=== PATIENT | male | born 1970 | race Two or more races ===

== ENCOUNTER 2023-05-03 10:05 | Inpatient (IN) | payer OTHER ==
[2023-05-03 10:58] VITALS: BMI 30.8
[2023-05-03] MEDS ORDERED: IBUPROFEN 400 MG TABLET (FP) PO PRN (11:23)
[2023-05-03] MEDS ORDERED: guaiFENesin 600 MG TABLET.ER (FP) PO PRN (11:23)
[2023-05-03] MEDS ORDERED: NICOTINE POLACRILEX 2 MG GUM BUC PRN (11:23)
[2023-05-03] MEDS ORDERED: LOPERAMIDE HCL 2 MG CAPSULE PO PRN (11:23)
[2023-05-03] MEDS ORDERED: ACETAMINOPHEN 325 MG TABLET (FP) PO PRN (11:23)
[2023-05-03] MEDS ORDERED: NALOXONE HCL (KLOXXADO) 8 MG SPRAY NS PRN (11:23)
[2023-05-03] MEDS ORDERED: BENZOCAINE/MENTHOL (CHLORASEPTIC ) LOZENGE MM PRN (11:23)
[2023-05-03] MEDS ORDERED: BISMUTH SUBSALICYLATE 262 MG/15 ML BTL PO PRN (11:23)
[2023-05-03] MEDS ORDERED: NALOXONE HCL 0.4 MG/ML VIAL IM PRN (11:23)
[2023-05-03] MEDS ORDERED: IBUPROFEN 600 MG TABLET (FP) PO PRN (11:23)
[2023-05-03] MEDS ORDERED: BENZONATATE 200 MG CAPSULE PO PRN (11:23)
[2023-05-03] MEDS ORDERED: chlordiazePOXIDE HCL 25 MG CAPSULE ONE (12:39)
[2023-05-03] MEDS: chlordiazePOXIDE HCL 25 MG CAPSULE PO PRN (13:26)
[2023-05-03] MEDS: LISINOPRIL 10 MG TABLET PO ONE (15:51)
[2023-05-03] MEDS: chlordiazePOXIDE HCL 25 MG CAPSULE PO SCH (17:08)
[2023-05-03] MEDS: hydrOXYzine PAMOATE 25 MG CAPSULE (FP) PO PRN (20:16)
[2023-05-03] MEDS: THIAMINE HCL 100 MG TABLET (FP) PO SCH (22:16)
[2023-05-03] MEDS: cloNIDine HCL 0.1 MG TABLET PO SCH (22:16)
[2023-05-03] MEDS: MELATONIN 5 MG TABLETS PO SCH (22:17)
[2023-05-03] MEDS: METHOCARBAMOL 500 MG TABLET PO PRN (22:18)
[2023-05-04] MEDS: methaDONE HCL 40 MG DISPERSABLE TABLET PO SCH (08:48)
[2023-05-04] MEDS: PRENATAL VITAMINS W/ FOLIC ACID TABLET (FP) PO SCH (10:12)
[2023-05-04] MEDS: NICOTINE 21 MG/24 HOURS TOPICAL PATCH TD SCH (10:12)
[2023-05-04] MEDS: LISINOPRIL 10 MG TABLET PO SCH (10:12)
[2023-05-04 11:03] LABS: HEMATOCRIT 42.1 % (35.4-49); HEMOGLOBIN 13.8 GM/dL (11.7-16.9); MCH 28.8 pg (25.7-33.7); MCHC 32.9 g/dl (32.0-35.9); MEAN CELL VOLUME 87.3 fl (80-96); MEAN PLT VOLUME 9.2 fl (7.5-11.1); PLATELET COUNT 207 10^3/uL (134-434); RBC 4.82 M/mm3 (4.00-5.60); RDW 13.9 % (11.9-15.9); WHITE BLOOD COUNT 6.2 K/mm3 (4.0-10.0)
[2023-05-04 11:04] LABS: POTASSIUM 4.2 mmol/L (3.5-5.1)
[2023-05-04 11:12] LABS: ALBUMIN 3.9 g/dl (3.4-5.0); BLOOD UREA NITROGEN 22.7 mg/dL (7-18)
[2023-05-04 11:15] LABS: CREATININE 0.7 mg/dL (0.55-1.3)
[2023-05-04 11:17] LABS: TOT PROT 6.9 g/dl (6.4-8.2)
[2023-05-04 11:18] LABS: BILIRUBIN,TOTAL 0.7 mg/dL (0.2-1)
[2023-05-04] MEDS: FLU VACCINE (FLULAVAL) PF 60 MCG/0.5 ML SYRINGE 2023-2024 IM ONE (11:47)
[2023-05-04] MEDS: PNEUMOC 20-VAL CONJ-DIP CRM/PF 0.5 ML SYRINGE IM ONE (11:48)
[2023-05-04] MEDS: MAGNESIUM HYDROX 2400MG/30ML ORAL SUSPENSION 30 ML CUP PO PRN (17:51)
[2023-05-04] MEDS: GABAPENTIN 300 MG CAPSULE PO SCH (22:10)
[2023-05-05] MEDS: chlordiazePOXIDE HCL 25 MG CAPSULE PO SCH (05:28)
[2023-05-05] MEDS: MAG HYDROX/AL HYDROX/SIMETH 30 ML UNIT-DOSE CUP PO PRN (13:16)
[2023-05-05] MEDS: POLYETHYLENE GLYCOL (HEALTHYLAX) 3350 17 GM PACKET PO PRN (22:09)
[2023-05-06] MEDS: chlordiazePOXIDE HCL 10 MG CAPSULE PO SCH (05:28)
[2023-05-06] MEDS: ONDANSETRON *ODT* 4 MG TABLET SL PRN (10:18)
[2023-05-06] MEDS: chlordiazePOXIDE HCL 10 MG CAPSULE PO PRN (14:17)
[2023-05-07] MEDS: chlordiazePOXIDE HCL 10 MG CAPSULE PO SCH (05:13)
[2023-05-07 09:17] VITALS: BP 125/81; PULSE 103; RESP 18; TEMP 98.3
[2023-05-08] MEDS ORDERED: chlordiazePOXIDE HCL 10 MG CAPSULE PO ONE (05:00)
== END 2023-05-07 09:02 | disposition home or self-care (01) | DRG 773 ==
LOC: YASAS 10:05 → Y6N 12:39
PROVIDERS: ADMIT Allergy & Immunology; ATTEND Surgery
PROC: HZ2ZZZZ Detoxification Services for Substance Abuse Treatment (ICD-10-PCS; principal; 2023-05-03)
DX: F10.230 Alcohol dependence with withdrawal, uncomplicated (principal); F11.20 Opioid dependence, uncomplicated; F17.210 Nicotine dependence, cigarettes, uncomplicated; F19.282 Other psychoactive substance dependence with psychoactive substance-induced sleep disorder; F41.9 Anxiety disorder, unspecified; I10 Essential (primary) hypertension; J45.909 Unspecified asthma, uncomplicated; M54.50 Low back pain, unspecified; G89.29 Other chronic pain; Z56.0 Unemployment, unspecified; Z59.00 Homelessness unspecified
CPT/HCPCS: 36415; 80053; 80307; 85027; 86780; 87635; 87811; 90677; 90686; 93005; 93010; G0008; Q0162

== ENCOUNTER 2023-06-07 09:58 | Inpatient (IN) | payer OTHER ==
[2023-06-07 10:39] VITALS: BMI 31.6
[2023-06-07] MEDS ORDERED: guaiFENesin 600 MG TABLET.ER (FP) PO PRN (12:24)
[2023-06-07] MEDS ORDERED: DICYCLOMINE HCL 10 MG CAPSULE PO PRN (12:24)
[2023-06-07] MEDS ORDERED: LOPERAMIDE HCL 2 MG CAPSULE PO PRN (12:24)
[2023-06-07] MEDS ORDERED: BENZOCAINE/MENTHOL (CHLORASEPTIC ) LOZENGE MM PRN (12:24)
[2023-06-07] MEDS ORDERED: POLYETHYLENE GLYCOL (HEALTHYLAX) 3350 17 GM PACKET PO PRN (12:24)
[2023-06-07] MEDS ORDERED: BENZONATATE 200 MG CAPSULE PO PRN (12:24)
[2023-06-07] MEDS ORDERED: IBUPROFEN 400 MG TABLET (FP) PO PRN (12:24)
[2023-06-07] MEDS ORDERED: NALOXONE HCL 0.4 MG/ML VIAL IM PRN (12:24)
[2023-06-07] MEDS ORDERED: NALOXONE HCL (KLOXXADO) 8 MG SPRAY NS PRN (12:24)
[2023-06-07] MEDS ORDERED: chlordiazePOXIDE HCL 25 MG CAPSULE PO PRN (12:24)
[2023-06-07] MEDS ORDERED: chlordiazePOXIDE HCL 25 MG CAPSULE ONE (12:50)
[2023-06-07] MEDS ORDERED: NICOTINE 21 MG/24 HOURS TOPICAL PATCH ONE (12:50)
[2023-06-07] MEDS ORDERED: cloNIDine HCL 0.1 MG TABLET ONE (12:51)
[2023-06-07] MEDS ORDERED: ONDANSETRON *ODT* 4 MG TABLET ONE (12:51)
[2023-06-07] MEDS: chlordiazePOXIDE HCL 25 MG CAPSULE PO ONE (12:55)
[2023-06-07] MEDS: NICOTINE 21 MG/24 HOURS TOPICAL PATCH TD SCH (12:56)
[2023-06-07] MEDS: ONDANSETRON *ODT* 4 MG TABLET SL PRN (12:57)
[2023-06-07] MEDS ORDERED: ACETAMINOPHEN 325 MG TABLET (FP) ONE (13:03)
[2023-06-07] MEDS: PRENATAL VITAMINS W/ FOLIC ACID TABLET (FP) PO SCH (13:07)
[2023-06-07] MEDS: ACETAMINOPHEN 325 MG TABLET (FP) PO PRN (13:08)
[2023-06-07] MEDS: cloNIDine HCL 0.1 MG TABLET PO ONE (13:13)
[2023-06-07] MEDS: METHOCARBAMOL 500 MG TABLET PO PRN (14:28)
[2023-06-07] MEDS: hydrOXYzine PAMOATE 25 MG CAPSULE (FP) PO PRN (14:28)
[2023-06-07] MEDS: chlordiazePOXIDE HCL 25 MG CAPSULE PO SCH (17:39)
[2023-06-07] MEDS: MELATONIN 5 MG TABLETS PO SCH (22:22)
[2023-06-07] MEDS: GABAPENTIN 300 MG CAPSULE PO SCH (22:23)
[2023-06-07] MEDS: cloNIDine HCL 0.1 MG TABLET PO SCH (22:23)
[2023-06-07] MEDS: THIAMINE HCL 100 MG TABLET (FP) PO SCH (22:23)
[2023-06-08] MEDS ORDERED: methaDONE HCL 40 MG DISPERSABLE TABLET PO SCH (10:00)
[2023-06-08] MEDS: IBUPROFEN 600 MG TABLET (FP) PO PRN (10:11)
[2023-06-08] MEDS: LISINOPRIL 10 MG TABLET PO SCH (10:12)
[2023-06-08 11:36] LABS: HEMATOCRIT 40.4 % (35.4-49); HEMOGLOBIN 13.6 GM/dL (11.7-16.9); MCH 29.6 pg (25.7-33.7); MCHC 33.8 g/dl (32.0-35.9); MEAN CELL VOLUME 87.7 fl (80-96); MEAN PLT VOLUME 8.9 fl (7.5-11.1); PLATELET COUNT 208 10^3/uL (134-434); RBC 4.61 M/mm3 (4.00-5.60); RDW 14.1 % (11.9-15.9); WHITE BLOOD COUNT 6.7 K/mm3 (4.0-10.0)
[2023-06-08 11:38] LABS: POTASSIUM 4.5 mmol/L (3.5-5.1)
[2023-06-08 11:46] LABS: CALCIUM 8.9 mg/dL (8.5-10.1)
[2023-06-08 11:47] LABS: ALBUMIN 4.3 g/dl (3.4-5.0); BLOOD UREA NITROGEN 26.5 mg/dL (7-18)
[2023-06-08 11:50] LABS: CREATININE 0.8 mg/dL (0.55-1.3)
[2023-06-08 11:51] LABS: BILIRUBIN,TOTAL 0.8 mg/dL (0.2-1); TOT PROT 6.9 g/dl (6.4-8.2)
[2023-06-08] MEDS: LACTULOSE 20 GM/30 ML UDC (FOR ORAL USE ONLY) PO SCH (13:05)
[2023-06-08] MEDS: MAG HYDROX/AL HYDROX/SIMETH 30 ML UNIT-DOSE CUP PO PRN (16:18)
[2023-06-08] MEDS: MAGNESIUM HYDROX 2400MG/30ML ORAL SUSPENSION 30 ML CUP PO PRN (21:35)
[2023-06-09] MEDS: BISMUTH SUBSALICYLATE 524 MG/30 ML PO PRN (01:54)
[2023-06-09] MEDS: chlordiazePOXIDE HCL 25 MG CAPSULE PO SCH (05:38)
[2023-06-09] MEDS: cloNIDine HCL 0.1 MG TABLET PO PRN (11:49)
[2023-06-10] MEDS ORDERED: chlordiazePOXIDE HCL 10 MG CAPSULE PO PRN
[2023-06-10] MEDS: chlordiazePOXIDE HCL 10 MG CAPSULE PO SCH (05:40)
[2023-06-10 06:21] VITALS: TEMP 97.7
[2023-06-10 09:28] VITALS: BP 145/86; PULSE 78; RESP 18
[2023-06-11] MEDS ORDERED: chlordiazePOXIDE HCL 10 MG CAPSULE PO SCH (05:00)
[2023-06-12] MEDS ORDERED: chlordiazePOXIDE HCL 10 MG CAPSULE PO ONE (05:00)
== END 2023-06-10 09:37 | disposition home or self-care (01) | DRG 773 ==
LOC: YASAS 09:58 → Y3N 12:33
PROVIDERS: ADMIT Allergy & Immunology; ATTEND Surgery
PROC: HZ2ZZZZ Detoxification Services for Substance Abuse Treatment (ICD-10-PCS; principal; 2023-06-06)
DX: F10.230 Alcohol dependence with withdrawal, uncomplicated (principal); F11.20 Opioid dependence, uncomplicated; F17.210 Nicotine dependence, cigarettes, uncomplicated; F19.282 Other psychoactive substance dependence with psychoactive substance-induced sleep disorder; F41.9 Anxiety disorder, unspecified; E72.20 Disorder of urea cycle metabolism, unspecified; I10 Essential (primary) hypertension; J45.909 Unspecified asthma, uncomplicated; M54.50 Low back pain, unspecified; G89.29 Other chronic pain; Z56.0 Unemployment, unspecified; Z59.01 Sheltered homelessness
CPT/HCPCS: 36415; 80053; 80307; 82140; 82962; 85027; 86780; 87635; Q0162

== ENCOUNTER 2023-06-29 11:42 | Inpatient (IN) | payer OTHER ==
[2023-06-29 12:30] VITALS: BMI 32.1
[2023-06-29] MEDS ORDERED: NICOTINE POLACRILEX 2 MG GUM BUC PRN (15:28)
[2023-06-29] MEDS ORDERED: NALOXONE HCL (KLOXXADO) 8 MG SPRAY NS PRN (15:28)
[2023-06-29] MEDS ORDERED: guaiFENesin 600 MG TABLET.ER (FP) PO PRN (15:28)
[2023-06-29] MEDS ORDERED: POLYETHYLENE GLYCOL (HEALTHYLAX) 3350 17 GM PACKET PO PRN (15:28)
[2023-06-29] MEDS ORDERED: IBUPROFEN 400 MG TABLET (FP) PO PRN (15:28)
[2023-06-29] MEDS ORDERED: NALOXONE HCL 0.4 MG/ML VIAL IM PRN (15:28)
[2023-06-29] MEDS ORDERED: ACETAMINOPHEN 325 MG TABLET (FP) PO PRN (15:28)
[2023-06-29] MEDS ORDERED: LOPERAMIDE HCL 2 MG CAPSULE PO PRN (15:28)
[2023-06-29] MEDS ORDERED: BENZONATATE 200 MG CAPSULE PO PRN (15:28)
[2023-06-29] MEDS ORDERED: ONDANSETRON *ODT* 4 MG TABLET SL PRN (15:28)
[2023-06-29] MEDS ORDERED: BENZOCAINE/MENTHOL (CHLORASEPTIC ) LOZENGE MM PRN (15:28)
[2023-06-29] MEDS ORDERED: diazePAM 5 MG TABLET ONE (16:41)
[2023-06-29] MEDS: diazePAM 5 MG TABLET PO SCH (16:43)
[2023-06-29] MEDS: IBUPROFEN 600 MG TABLET (FP) PO PRN (17:15)
[2023-06-29] MEDS: MELATONIN 5 MG TABLETS PO SCH (22:00)
[2023-06-29] MEDS: THIAMINE HCL 100 MG TABLET (FP) PO SCH (22:04)
[2023-06-29] MEDS: METHOCARBAMOL 500 MG TABLET PO PRN (22:04)
[2023-06-30] MEDS: methaDONE HCL 40 MG DISPERSABLE TABLET PO SCH (08:57)
[2023-06-30] MEDS: NICOTINE 14 MG/24 HOURS TOPICAL PATCH TD SCH (10:01)
[2023-06-30] MEDS: PRENATAL VITAMINS W/ FOLIC ACID TABLET (FP) PO SCH (10:01)
[2023-06-30] MEDS: GABAPENTIN 300 MG CAPSULE PO SCH (10:44)
[2023-06-30] MEDS: LISINOPRIL 10 MG TABLET PO SCH (10:44)
[2023-06-30 12:08] LABS: HEMATOCRIT 38.4 % (35.4-49); MCH 29.3 pg (25.7-33.7); MCHC 33.9 g/dl (32.0-35.9); MEAN CELL VOLUME 86.4 fl (80-96); MEAN PLT VOLUME 8.6 fl (7.5-11.1); PLATELET COUNT 206 10^3/uL (134-434); RBC 4.44 M/mm3 (4.00-5.60); WHITE BLOOD COUNT 6.1 K/mm3 (4.0-10.0)
[2023-06-30 12:13] LABS: CALCIUM 8.8 mg/dL (8.5-10.1)
[2023-06-30 12:14] LABS: ALBUMIN 3.5 g/dl (3.4-5.0); ANION GAP 4 mmol/L (4-13); BLOOD UREA NITROGEN 25.1 mg/dL (7-18); CHLORIDE 105 mmol/L (98-107); CO2 29 mmol/L (21-32); GLUCOSE,RANDOM 118 mg/dL (74-106); POTASSIUM 4.4 mmol/L (3.5-5.1); SODIUM 138 mmol/L (136-145)
[2023-06-30 12:17] LABS: CREATININE 0.8 mg/dL (0.55-1.3); SGOT/AST 26 U/L (15-37); SGPT/ALT 26 U/L (13-61)
[2023-06-30 12:18] LABS: BILIRUBIN,TOTAL 0.5 mg/dL (0.2-1); TOT PROT 6.4 g/dl (6.4-8.2)
[2023-06-30 12:19] LABS: ALK PHOS 81 U/L (45-117)
[2023-06-30] MEDS: diazePAM 5 MG TABLET PO PRN (12:25)
[2023-06-30] MEDS: cloNIDine HCL 0.1 MG TABLET PO ONE (13:55)
[2023-06-30] MEDS: MAGNESIUM HYDROX 2400MG/30ML ORAL SUSPENSION 30 ML CUP PO PRN (18:15)
[2023-07-01] MEDS: diazePAM 5 MG TABLET PO SCH (05:14)
[2023-07-01] MEDS: MAG HYDROX/AL HYDROX/SIMETH 30 ML UNIT-DOSE CUP PO PRN (06:40)
[2023-07-01] MEDS: LACTULOSE 20 GM/30 ML UDC (FOR ORAL USE ONLY) PO SCH (17:20)
[2023-07-01] MEDS: SUVOREXANT 10 MG TABLET PO PRN (22:06)
[2023-07-02] MEDS: diazePAM 5 MG TABLET PO SCH (06:01)
[2023-07-02] MEDS: BISMUTH SUBSALICYLATE 524 MG/30 ML PO PRN (18:18)
[2023-07-02] MEDS: HYDROCORTISONE 2.5% TOPICAL CREAM 30 GM TUBE TP PRN (22:11)
[2023-07-03] MEDS: diazePAM 5 MG TABLET PO ONE (05:37)
[2023-07-03] MEDS: ALBUTEROL SO4 HFA INHALER IH PRN (13:26)
[2023-07-04] MEDS: diazePAM 5 MG TABLET PO ONE (05:55)
[2023-07-04 09:26] VITALS: BP 135/87; PULSE 85; RESP 20; TEMP 96.9
== END 2023-07-04 10:32 | disposition home or self-care (01) | DRG 773 ==
LOC: YASAS 11:42 → Y6N 16:27
PROVIDERS: ADMIT Allergy & Immunology; ATTEND Surgery
PROC: HZ2ZZZZ Detoxification Services for Substance Abuse Treatment (ICD-10-PCS; principal; 2023-06-29)
DX: F10.230 Alcohol dependence with withdrawal, uncomplicated (principal); F13.230 Sedative, hypnotic or anxiolytic dependence with withdrawal, uncomplicated; F11.20 Opioid dependence, uncomplicated; F17.210 Nicotine dependence, cigarettes, uncomplicated; F19.282 Other psychoactive substance dependence with psychoactive substance-induced sleep disorder; F19.280 Other psychoactive substance dependence with psychoactive substance-induced anxiety disorder; E72.20 Disorder of urea cycle metabolism, unspecified; I10 Essential (primary) hypertension; J45.20 Mild intermittent asthma, uncomplicated; M48.061 Spinal stenosis, lumbar region without neurogenic claudication; M54.50 Low back pain, unspecified; G89.29 Other chronic pain; R73.9 Hyperglycemia, unspecified; R79.89 Other specified abnormal findings of blood chemistry; Z62.810 Personal history of physical and sexual abuse in childhood; Z63.8 Other specified problems related to primary support group
CPT/HCPCS: 36415; 80053; 80305; 80307; 82140; 82962; 83036; 84520; 85027; 86780; 87635; 93005; 93010

== ENCOUNTER 2023-08-06 18:05 | Inpatient (IN) | payer OTHER ==
[2023-08-06 18:29] VITALS: BMI 31.3
[2023-08-06] MEDS ORDERED: DICYCLOMINE HCL 10 MG CAPSULE PO PRN (19:03)
[2023-08-06] MEDS ORDERED: guaiFENesin 600 MG TABLET.ER (FP) PO PRN (19:03)
[2023-08-06] MEDS ORDERED: ONDANSETRON *ODT* 4 MG TABLET SL PRN (19:03)
[2023-08-06] MEDS ORDERED: BISMUTH SUBSALICYLATE 524 MG/30 ML PO PRN (19:03)
[2023-08-06] MEDS ORDERED: NALOXONE HCL 0.4 MG/ML VIAL IM PRN (19:03)
[2023-08-06] MEDS ORDERED: BENZOCAINE/MENTHOL (CHLORASEPTIC ) LOZENGE MM PRN (19:03)
[2023-08-06] MEDS ORDERED: IBUPROFEN 400 MG TABLET (FP) PO PRN (19:03)
[2023-08-06] MEDS ORDERED: NALOXONE HCL (KLOXXADO) 8 MG SPRAY NS PRN (19:03)
[2023-08-06] MEDS ORDERED: POLYETHYLENE GLYCOL (HEALTHYLAX) 3350 17 GM PACKET PO PRN (19:03)
[2023-08-06] MEDS ORDERED: LOPERAMIDE HCL 2 MG CAPSULE PO PRN (19:03)
[2023-08-06] MEDS ORDERED: BENZONATATE 200 MG CAPSULE PO PRN (19:03)
[2023-08-06] MEDS: THIAMINE HCL 100 MG TABLET (FP) PO SCH (22:07)
[2023-08-06] MEDS: MELATONIN 5 MG TABLETS PO SCH (22:07)
[2023-08-06] MEDS: diazePAM 5 MG TABLET PO SCH (22:10)
[2023-08-07] MEDS: ACETAMINOPHEN 325 MG TABLET (FP) PO PRN (05:20)
[2023-08-07] MEDS: METHOCARBAMOL 500 MG TABLET PO PRN (07:39)
[2023-08-07] MEDS: PRENATAL VITAMINS W/ FOLIC ACID TABLET (FP) PO SCH (10:32)
[2023-08-07] MEDS: methaDONE HCL 40 MG DISPERSABLE TABLET PO SCH (10:51)
[2023-08-07] MEDS: LISINOPRIL 10 MG TABLET PO SCH (13:16)
[2023-08-07 14:09] LABS: HEMATOCRIT 41.6 % (35.4-49); HEMOGLOBIN 13.7 GM/dL (11.7-16.9); MCH 28.7 pg (25.7-33.7); MCHC 32.8 g/dl (32.0-35.9); MEAN CELL VOLUME 87.5 fl (80-96); MEAN PLT VOLUME 8.4 fl (7.5-11.1); PLATELET COUNT 226 10^3/uL (134-434); RBC 4.76 M/mm3 (4.00-5.60); RDW 13.8 % (11.9-15.9); WHITE BLOOD COUNT 7.2 K/mm3 (4.0-10.0)
[2023-08-07 14:25] LABS: CHLORIDE 104 mmol/L (98-107); POTASSIUM 4.4 mmol/L (3.5-5.1); SODIUM 136 mmol/L (136-145)
[2023-08-07 14:27] LABS: ALBUMIN 3.6 g/dl (3.4-5.0); ANION GAP 2 mmol/L (4-13); BLOOD UREA NITROGEN 32.4 mg/dL (7-18); CALCIUM 8.9 mg/dL (8.5-10.1); CO2 30 mmol/L (21-32)
[2023-08-07 14:30] LABS: CREATININE 0.8 mg/dL (0.55-1.3); SGOT/AST 18 U/L (15-37); SGPT/ALT 21 U/L (13-61)
[2023-08-07 14:32] LABS: BILIRUBIN,TOTAL 1.2 mg/dL (0.2-1); TOT PROT 6.3 g/dl (6.4-8.2)
[2023-08-07 14:33] LABS: ALK PHOS 78 U/L (45-117)
[2023-08-07 14:41] LABS: GLUCOSE,RANDOM 93 mg/dL (74-106)
[2023-08-08] MEDS: diazePAM 5 MG TABLET PO SCH (05:28)
[2023-08-08] MEDS: diazePAM 5 MG TABLET PO PRN (10:22)
[2023-08-08] MEDS: NICOTINE 14 MG/24 HOURS TOPICAL PATCH TD SCH (12:36)
[2023-08-08] MEDS: IBUPROFEN 600 MG TABLET (FP) PO PRN (17:19)
[2023-08-08] MEDS: hydrOXYzine PAMOATE 25 MG CAPSULE (FP) PO PRN (22:04)
[2023-08-09] MEDS: diazePAM 5 MG TABLET PO SCH (05:44)
[2023-08-09] MEDS: PANTOPRAZOLE 40 MG TABLET PO SCH (11:30)
[2023-08-09] MEDS: GABAPENTIN 300 MG CAPSULE PO SCH (11:30)
[2023-08-09] MEDS: MAGNESIUM HYDROX 2400MG/30ML ORAL SUSPENSION 30 ML CUP PO PRN (22:30)
[2023-08-10] MEDS: MAG HYDROX/AL HYDROX/SIMETH 30 ML UNIT-DOSE CUP PO PRN (01:52)
[2023-08-10] MEDS: diazePAM 5 MG TABLET PO ONE (05:40)
[2023-08-10 05:56] VITALS: BP 126/88; PULSE 73; RESP 17; TEMP 98.6
== END 2023-08-10 09:07 | disposition home or self-care (01) | DRG 773 ==
LOC: YASAS 18:05 → Y3N 20:30
PROVIDERS: ADMIT Allergy & Immunology; ATTEND Surgery
PROC: HZ2ZZZZ Detoxification Services for Substance Abuse Treatment (ICD-10-PCS; principal; 2023-08-06)
DX: F10.230 Alcohol dependence with withdrawal, uncomplicated (principal); F11.20 Opioid dependence, uncomplicated; F15.20 Other stimulant dependence, uncomplicated; F12.10 Cannabis abuse, uncomplicated; F17.210 Nicotine dependence, cigarettes, uncomplicated; F41.9 Anxiety disorder, unspecified; G47.00 Insomnia, unspecified; K21.9 Gastro-esophageal reflux disease without esophagitis; M54.50 Low back pain, unspecified; G89.29 Other chronic pain; Z87.828 Personal history of other (healed) physical injury and trauma; Z56.0 Unemployment, unspecified; Z59.01 Sheltered homelessness
CPT/HCPCS: 36415; 80053; 80307; 85027; 86780; 93005; 93010

== ENCOUNTER 2023-08-27 10:40 | Inpatient (IN) | payer OTHER ==
[2023-08-27 11:03] VITALS: BMI 32.1
[2023-08-27] MEDS ORDERED: DICYCLOMINE HCL 10 MG CAPSULE PO PRN (11:27)
[2023-08-27] MEDS ORDERED: MAGNESIUM HYDROX 2400MG/30ML ORAL SUSPENSION 30 ML CUP PO PRN (11:27)
[2023-08-27] MEDS ORDERED: BENZONATATE 200 MG CAPSULE PO PRN (11:27)
[2023-08-27] MEDS ORDERED: hydrOXYzine PAMOATE 25 MG CAPSULE (FP) PO PRN (11:27)
[2023-08-27] MEDS ORDERED: NALOXONE HCL (KLOXXADO) 8 MG SPRAY NS PRN (11:27)
[2023-08-27] MEDS ORDERED: ONDANSETRON *ODT* 4 MG TABLET SL PRN (11:27)
[2023-08-27] MEDS ORDERED: guaiFENesin 600 MG TABLET.ER (FP) PO PRN (11:27)
[2023-08-27] MEDS ORDERED: BENZOCAINE/MENTHOL (CHLORASEPTIC ) LOZENGE MM PRN (11:27)
[2023-08-27] MEDS ORDERED: IBUPROFEN 400 MG TABLET (FP) PO PRN (11:27)
[2023-08-27] MEDS ORDERED: NALOXONE HCL 0.4 MG/ML VIAL IM PRN (11:27)
[2023-08-27] MEDS ORDERED: LOPERAMIDE HCL 2 MG CAPSULE PO PRN (11:27)
[2023-08-27] MEDS ORDERED: NICOTINE 21 MG/24 HOURS TOPICAL PATCH ONE (13:13)
[2023-08-27] MEDS ORDERED: ACETAMINOPHEN 325 MG TABLET (FP) ONE (13:13)
[2023-08-27] MEDS ORDERED: diazePAM 5 MG TABLET ONE (13:13)
[2023-08-27] MEDS ORDERED: PRENATAL VITAMINS W/ FOLIC ACID TABLET (FP) PO ONE (13:14)
[2023-08-27] MEDS: PRENATAL VITAMINS W/ FOLIC ACID TABLET (FP) PO SCH (13:19)
[2023-08-27] MEDS: NICOTINE 21 MG/24 HOURS TOPICAL PATCH TD SCH (13:19)
[2023-08-27] MEDS: ACETAMINOPHEN 325 MG TABLET (FP) PO PRN (13:19)
[2023-08-27] MEDS: diazePAM 5 MG TABLET PO PRN (13:20)
[2023-08-27] MEDS: LISINOPRIL 10 MG TABLET PO SCH (15:25)
[2023-08-27] MEDS: diazePAM 5 MG TABLET PO SCH (17:34)
[2023-08-27] MEDS: IBUPROFEN 600 MG TABLET (FP) PO PRN (17:36)
[2023-08-27] MEDS: THIAMINE 100 MG TABLET PO SCH (22:14)
[2023-08-27] MEDS: cloNIDine HCL 0.1 MG TABLET PO ONE (22:14)
[2023-08-27] MEDS: MELATONIN 5 MG TABLETS PO SCH (22:14)
[2023-08-27] MEDS: BISMUTH SUBSALICYLATE 262 MG/15 ML BTL PO PRN (23:12)
[2023-08-28] MEDS ORDERED: methaDONE HCL 40 MG DISPERSABLE TABLET PO SCH (06:00)
[2023-08-28] MEDS: METHOCARBAMOL 500 MG TABLET PO PRN (10:06)
[2023-08-28 12:33] LABS: POTASSIUM 4.4 mmol/L (3.5-5.1)
[2023-08-28 12:37] LABS: ALBUMIN 3.6 g/dl (3.4-5.0); BLOOD UREA NITROGEN 17.6 mg/dL (7-18)
[2023-08-28 12:39] LABS: HEMATOCRIT 41.5 % (35.4-49); HEMOGLOBIN 14.2 GM/dL (11.7-16.9); MCH 29.5 pg (25.7-33.7); MCHC 34.1 g/dl (32.0-35.9); MEAN CELL VOLUME 86.4 fl (80-96); MEAN PLT VOLUME 8.6 fl (7.5-11.1); PLATELET COUNT 241 10^3/uL (134-434); WHITE BLOOD COUNT 6.5 K/mm3 (4.0-10.0)
[2023-08-28 12:42] LABS: BILIRUBIN,TOTAL 0.6 mg/dL (0.2-1); TOT PROT 6.8 g/dl (6.4-8.2)
[2023-08-28] MEDS ORDERED: ALBUTEROL SO4 HFA INHALER IH PRN (14:55)
[2023-08-28] MEDS: MAG HYDROX/AL HYDROX/SIMETH 30 ML UNIT-DOSE CUP PO PRN (18:36)
[2023-08-28] MEDS: MIRTAZAPINE 15 MG TABLET (FP) PO SCH (22:13)
[2023-08-29] MEDS: cloNIDine HCL 0.1 MG TABLET PO PRN (05:31)
[2023-08-29] MEDS: diazePAM 5 MG TABLET PO SCH (05:34)
[2023-08-29] MEDS: GABAPENTIN 300 MG CAPSULE PO SCH (14:14)
[2023-08-29] MEDS: POLYETHYLENE GLYCOL (HEALTHYLAX) 3350 17 GM PACKET PO PRN (14:15)
[2023-08-30] MEDS: diazePAM 5 MG TABLET PO SCH (06:03)
[2023-08-30 09:01] VITALS: BP 145/90; PULSE 86; RESP 20; TEMP 97.6
[2023-08-31] MEDS ORDERED: diazePAM 5 MG TABLET PO ONE (06:00)
== END 2023-08-30 09:13 | disposition home or self-care (01) | DRG 773 ==
LOC: YASAS 10:40 → Y3N 12:31
PROVIDERS: ADMIT Allergy & Immunology; ATTEND Surgery
PROC: HZ2ZZZZ Detoxification Services for Substance Abuse Treatment (ICD-10-PCS; principal; 2023-08-27)
DX: F10.230 Alcohol dependence with withdrawal, uncomplicated (principal); F11.20 Opioid dependence, uncomplicated; F17.210 Nicotine dependence, cigarettes, uncomplicated; F43.10 Post-traumatic stress disorder, unspecified; I10 Essential (primary) hypertension; J45.909 Unspecified asthma, uncomplicated; M54.50 Low back pain, unspecified; G89.29 Other chronic pain; Z91.410 Personal history of adult physical and sexual abuse
CPT/HCPCS: 36415; 80053; 80305; 80307; 82962; 85027; 86780; 93005; 93010

== ENCOUNTER 2023-10-12 18:24 | Inpatient (IN) | payer OTHER ==
[2023-10-12 19:04] VITALS: BMI 30.8
[2023-10-12] MEDS ORDERED: ALBUTEROL SO4 HFA INHALER IH PRN (19:33)
[2023-10-12] MEDS ORDERED: MAGNESIUM HYDROX 2400MG/30ML ORAL SUSPENSION 30 ML CUP PO PRN (19:34)
[2023-10-12] MEDS ORDERED: LOPERAMIDE HCL 2 MG CAPSULE PO PRN (19:34)
[2023-10-12] MEDS ORDERED: POLYETHYLENE GLYCOL (HEALTHYLAX) 3350 17 GM PACKET PO PRN (19:34)
[2023-10-12] MEDS ORDERED: guaiFENesin 600 MG TABLET.ER (FP) PO PRN (19:34)
[2023-10-12] MEDS ORDERED: NALOXONE (NARCAN) HCL 4 MG/0.1 ML SPRAY NS PRN (19:34)
[2023-10-12] MEDS ORDERED: ONDANSETRON *ODT* 4 MG TABLET SL PRN (19:34)
[2023-10-12] MEDS ORDERED: NALOXONE HCL 0.4 MG/ML VIAL IM PRN (19:34)
[2023-10-12] MEDS ORDERED: DICYCLOMINE HCL 10 MG CAPSULE PO PRN (19:34)
[2023-10-12] MEDS ORDERED: BENZONATATE 200 MG CAPSULE PO PRN (19:34)
[2023-10-12] MEDS ORDERED: NICOTINE POLACRILEX 4 MG GUM BUC PRN (19:34)
[2023-10-12] MEDS: DOCUSATE SODIUM 100 MG CAPSULE (FP) PO SCH (22:54)
[2023-10-12] MEDS: FAMOTIDINE 20 MG TABLET PO SCH (22:55)
[2023-10-12] MEDS: MELATONIN 5 MG TABLETS PO SCH (22:55)
[2023-10-12] MEDS: THIAMINE 100 MG TABLET PO SCH (22:55)
[2023-10-12] MEDS: chlordiazePOXIDE HCL 25 MG CAPSULE PO SCH (22:56)
[2023-10-12] MEDS: hydrOXYzine PAMOATE 25 MG CAPSULE (FP) PO PRN (22:57)
[2023-10-13] MEDS ORDERED: methaDONE HCL 10 MG TABLET PO ONE (09:11)
[2023-10-13] MEDS: GABAPENTIN 300 MG CAPSULE PO SCH (09:37)
[2023-10-13] MEDS: PRENATAL VITAMINS W/ FOLIC ACID TABLET (FP) PO SCH (09:37)
[2023-10-13] MEDS: LISINOPRIL 10 MG TABLET PO SCH (09:37)
[2023-10-13] MEDS: HYDROCHLOROTHIAZIDE 25 MG TABLET (FP) PO ONE (09:37)
[2023-10-13] MEDS: NICOTINE 21 MG/24 HOURS TOPICAL PATCH TD SCH (09:42)
[2023-10-13 12:58] LABS: CHLORIDE 106 mmol/L (98-107); HEMATOCRIT 43.6 % (35.4-49); MCH 28.7 pg (25.7-33.7); MCHC 32.2 g/dl (32.0-35.9); MEAN CELL VOLUME 89.2 fl (80-96); MEAN PLT VOLUME 8.8 fl (7.5-11.1); PLATELET COUNT 185 10^3/uL (134-434); RBC 4.89 M/mm3 (4.00-5.60); RDW 14.4 % (11.9-15.9); SODIUM 142 mmol/L (136-145); WHITE BLOOD COUNT 6.6 K/mm3 (4.0-10.0)
[2023-10-13 13:06] LABS: ALBUMIN 3.9 g/dl (3.4-5.0); ANION GAP 7 mmol/L (4-13); CALCIUM 9.6 mg/dL (8.5-10.1); CO2 29 mmol/L (21-32); GLUCOSE,RANDOM 146 mg/dL (74-106)
[2023-10-13 13:07] LABS: SGOT/AST 29 U/L (15-37); SGPT/ALT 34 U/L (13-61)
[2023-10-13 13:08] LABS: CREATININE 0.9 mg/dL (0.55-1.3); TOT PROT 7.2 g/dl (6.4-8.2)
[2023-10-13 13:11] LABS: ALK PHOS 111 U/L (45-117)
[2023-10-13] MEDS: chlordiazePOXIDE HCL 25 MG CAPSULE PO PRN (13:14)
[2023-10-13] MEDS: BISMUTH SUBSALICYLATE 524 MG/30 ML PO PRN (13:17)
[2023-10-13] MEDS: IBUPROFEN 600 MG TABLET (FP) PO PRN (17:16)
[2023-10-13] MEDS: MIRTAZAPINE 15 MG TABLET (FP) PO SCH (22:19)
[2023-10-14] MEDS: chlordiazePOXIDE HCL 25 MG CAPSULE PO SCH (05:48)
[2023-10-14] MEDS ORDERED: methaDONE HCL 10 MG TABLET PO SCH (06:00)
[2023-10-14] MEDS: ACETAMINOPHEN 325 MG TABLET (FP) PO PRN (16:55)
[2023-10-14] MEDS: IBUPROFEN 400 MG TABLET (FP) PO PRN (18:49)
[2023-10-14] MEDS: MAG HYDROX/AL HYDROX/SIMETH 30 ML UNIT-DOSE CUP PO PRN (23:43)
[2023-10-15] MEDS ORDERED: chlordiazePOXIDE HCL 10 MG CAPSULE PO PRN
[2023-10-15] MEDS: chlordiazePOXIDE HCL 10 MG CAPSULE PO SCH (05:21)
[2023-10-15] MEDS: cloNIDine HCL 0.1 MG TABLET PO ONE (13:48)
[2023-10-16] MEDS: chlordiazePOXIDE HCL 10 MG CAPSULE PO SCH (05:23)
[2023-10-16] MEDS: BENZOCAINE/MENTHOL (CHLORASEPTIC ) LOZENGE MM PRN (05:26)
[2023-10-17] MEDS: chlordiazePOXIDE HCL 10 MG CAPSULE PO ONE (05:50)
[2023-10-17 08:57] VITALS: BP 129/87; PULSE 110; RESP 16; TEMP 98
== END 2023-10-17 10:47 | disposition home or self-care (01) | DRG 773 ==
LOC: YASAS 18:24 → Y6N 21:38
PROVIDERS: ADMIT Allergy & Immunology; ATTEND Surgery
PROC: HZ2ZZZZ Detoxification Services for Substance Abuse Treatment (ICD-10-PCS; principal; 2023-10-12)
DX: F10.230 Alcohol dependence with withdrawal, uncomplicated (principal); F11.20 Opioid dependence, uncomplicated; F12.20 Cannabis dependence, uncomplicated; F17.210 Nicotine dependence, cigarettes, uncomplicated; F19.282 Other psychoactive substance dependence with psychoactive substance-induced sleep disorder; F19.280 Other psychoactive substance dependence with psychoactive substance-induced anxiety disorder; F19.24 Other psychoactive substance dependence with psychoactive substance-induced mood disorder; F41.1 Generalized anxiety disorder; I10 Essential (primary) hypertension; J45.20 Mild intermittent asthma, uncomplicated; K29.20 Alcoholic gastritis without bleeding; M48.061 Spinal stenosis, lumbar region without neurogenic claudication; M54.50 Low back pain, unspecified; G89.29 Other chronic pain; Z59.01 Sheltered homelessness
CPT/HCPCS: 36415; 80053; 80305; 80307; 85027; 86780; 93005; 93010

== ENCOUNTER 2023-11-16 17:27 | Inpatient (IN) | payer OTHER ==
[2023-11-16 17:55] VITALS: BMI 31.3
[2023-11-16] MEDS ORDERED: BISMUTH SUBSALICYLATE 524 MG/30 ML PO PRN (20:17)
[2023-11-16] MEDS ORDERED: IBUPROFEN 400 MG TABLET (FP) PO PRN (20:17)
[2023-11-16] MEDS ORDERED: LOPERAMIDE HCL 2 MG CAPSULE PO PRN (20:17)
[2023-11-16] MEDS ORDERED: BENZONATATE 200 MG CAPSULE PO PRN (20:17)
[2023-11-16] MEDS ORDERED: NICOTINE POLACRILEX 2 MG GUM BUC PRN (20:17)
[2023-11-16] MEDS ORDERED: BENZOCAINE/MENTHOL (CHLORASEPTIC ) LOZENGE MM PRN (20:17)
[2023-11-16] MEDS ORDERED: MAGNESIUM HYDROX 2400MG/30ML ORAL SUSPENSION 30 ML CUP PO PRN (20:17)
[2023-11-16] MEDS ORDERED: DICYCLOMINE HCL 10 MG CAPSULE PO PRN (20:17)
[2023-11-16] MEDS ORDERED: P-EPHED 60MG/TRIPROLIDI 2.5MG TABLET PO PRN (20:17)
[2023-11-16] MEDS ORDERED: NICOTINE POLACRILEX 2 MG LOZENGE BC PRN (20:17)
[2023-11-16] MEDS ORDERED: POLYETHYLENE GLYCOL (HEALTHYLAX) 3350 17 GM PACKET PO PRN (20:17)
[2023-11-16] MEDS ORDERED: MAG HYDROX/AL HYDROX/SIMETH 30 ML UNIT-DOSE CUP PO PRN (20:17)
[2023-11-16] MEDS ORDERED: NALOXONE HCL 0.4 MG/ML VIAL IM PRN (20:17)
[2023-11-16] MEDS ORDERED: guaiFENesin 600 MG TABLET.ER (FP) PO PRN (20:17)
[2023-11-16] MEDS ORDERED: NALOXONE (NARCAN) HCL 4 MG/0.1 ML SPRAY NS PRN (20:17)
[2023-11-16] MEDS ORDERED: ALBUTEROL SO4 HFA INHALER IH PRN (20:25)
[2023-11-16] MEDS ORDERED: diazePAM 5 MG TABLET ONE (20:51)
[2023-11-16] MEDS: diazePAM 5 MG TABLET PO ONE (21:03)
[2023-11-16] MEDS: METHOCARBAMOL 500 MG TABLET PO PRN (21:47)
[2023-11-16] MEDS: IBUPROFEN 600 MG TABLET (FP) PO PRN (21:47)
[2023-11-16] MEDS: MELATONIN 5 MG TABLETS PO SCH (21:47)
[2023-11-16] MEDS: THIAMINE 100 MG TABLET PO SCH (21:47)
[2023-11-16] MEDS: diazePAM 5 MG TABLET PO SCH (23:21)
[2023-11-17] MEDS: ONDANSETRON *ODT* 4 MG TABLET SL PRN (05:57)
[2023-11-17] MEDS: methaDONE HCL 10 MG TABLET PO SCH (09:10)
[2023-11-17] MEDS: LISINOPRIL 10 MG TABLET PO SCH (09:44)
[2023-11-17] MEDS: PRENATAL VITAMINS W/ FOLIC ACID TABLET (FP) PO SCH (09:44)
[2023-11-17] MEDS: NICOTINE 14 MG/24 HOURS TOPICAL PATCH TD SCH (09:45)
[2023-11-17 10:23] LABS: HEMATOCRIT 37.4 % (35.4-49); HEMOGLOBIN 12.4 GM/dL (11.7-16.9); MCH 29.3 pg (25.7-33.7); MEAN CELL VOLUME 88.7 fl (80-96); MEAN PLT VOLUME 8.7 fl (7.5-11.1); PLATELET COUNT 131 10^3/uL (134-434); RBC 4.22 M/mm3 (4.00-5.60); RDW 14.7 % (11.9-15.9); WHITE BLOOD COUNT 7.6 K/mm3 (4.0-10.0)
[2023-11-17 11:38] LABS: POTASSIUM 3.6 mmol/L (3.5-5.1)
[2023-11-17 11:58] LABS: ALBUMIN 3.1 g/dl (3.4-5.0); BLOOD UREA NITROGEN 23.3 mg/dL (7-18); CALCIUM 8.4 mg/dL (8.5-10.1)
[2023-11-17 12:01] LABS: CREATININE 0.7 mg/dL (0.55-1.3)
[2023-11-17 12:03] LABS: TOT PROT 5.7 g/dl (6.4-8.2)
[2023-11-17] MEDS: diazePAM 5 MG TABLET PO PRN (13:53)
[2023-11-17] MEDS: cloNIDine HCL 0.1 MG TABLET PO PRN (14:48)
[2023-11-17] MEDS: MIRTAZAPINE 15 MG TABLET (FP) PO SCH (22:05)
[2023-11-18] MEDS: diazePAM 5 MG TABLET PO SCH (06:08)
[2023-11-19] MEDS: diazePAM 5 MG TABLET PO SCH (05:50)
[2023-11-19] MEDS: GABAPENTIN 300 MG CAPSULE PO SCH (11:07)
[2023-11-20] MEDS: diazePAM 5 MG TABLET PO ONE (06:08)
[2023-11-20 12:44] VITALS: BP 158/109; PULSE 82; RESP 18; TEMP 99
[2023-11-20] MEDS: amLODIPine BESYLATE 10 MG TABLET (FP) PO SCH (13:39)
[2023-11-20] MEDS: ACETAMINOPHEN 325 MG TABLET (FP) PO PRN (15:24)
== END 2023-11-20 15:55 | disposition other institution (70) | DRG 773 ==
LOC: YASAS 17:27 → Y3N 20:21
PROVIDERS: ADMIT Allergy & Immunology; ATTEND Surgery
PROC: HZ2ZZZZ Detoxification Services for Substance Abuse Treatment (ICD-10-PCS; principal; 2023-11-16)
DX: F10.230 Alcohol dependence with withdrawal, uncomplicated (principal); F11.20 Opioid dependence, uncomplicated; F12.20 Cannabis dependence, uncomplicated; F17.210 Nicotine dependence, cigarettes, uncomplicated; F19.24 Other psychoactive substance dependence with psychoactive substance-induced mood disorder; F43.10 Post-traumatic stress disorder, unspecified; I10 Essential (primary) hypertension; G47.00 Insomnia, unspecified; M54.50 Low back pain, unspecified; G89.29 Other chronic pain
CPT/HCPCS: 36415; 80053; 80305; 80307; 85027; 87811; Q0162

== ENCOUNTER 2023-11-20 15:59 | Inpatient (IN) | payer OTHER ==
[2023-11-20] MEDS ORDERED: ACETAMINOPHEN 325 MG TABLET (FP) PO PRN (20:02)
[2023-11-20] MEDS ORDERED: guaiFENesin 600 MG TABLET.ER (FP) PO PRN (20:02)
[2023-11-20] MEDS ORDERED: NALOXONE (NARCAN) HCL 4 MG/0.1 ML SPRAY NS PRN (20:02)
[2023-11-20] MEDS ORDERED: BENZOCAINE/MENTHOL (CHLORASEPTIC ) LOZENGE MM PRN (20:02)
[2023-11-20] MEDS ORDERED: LOPERAMIDE HCL 2 MG CAPSULE PO PRN (20:02)
[2023-11-20] MEDS ORDERED: NALOXONE HCL 0.4 MG/ML VIAL IM PRN (20:02)
[2023-11-20] MEDS ORDERED: BENZONATATE 200 MG CAPSULE PO PRN (20:02)
[2023-11-20] MEDS: MELATONIN 5 MG TABLETS PO SCH (21:43)
[2023-11-20] MEDS: hydrOXYzine PAMOATE 25 MG CAPSULE (FP) PO PRN (21:43)
[2023-11-20] MEDS: THIAMINE 100 MG TABLET PO SCH (21:43)
[2023-11-20] MEDS: GABAPENTIN 300 MG CAPSULE PO SCH (21:43)
[2023-11-21] MEDS ORDERED: methaDONE HCL 10 MG TABLET PO SCH (06:00)
[2023-11-21] MEDS: IBUPROFEN 600 MG TABLET (FP) PO PRN (06:36)
[2023-11-21] MEDS: PRENATAL VITAMINS W/ FOLIC ACID TABLET (FP) PO SCH (09:58)
[2023-11-21 10:44] LABS: HEMATOCRIT 41.3 % (35.4-49); HEMOGLOBIN 13.8 GM/dL (11.7-16.9); MCH 29.4 pg (25.7-33.7); MCHC 33.4 g/dl (32.0-35.9); PLATELET COUNT 192 10^3/uL (134-434); RBC 4.69 M/mm3 (4.00-5.60); RDW 14.9 % (11.9-15.9); WHITE BLOOD COUNT 12.7 K/mm3 (4.0-10.0)
[2023-11-21 10:46] LABS: CHLORIDE 101 mmol/L (98-107); POTASSIUM 4.1 mmol/L (3.5-5.1); SODIUM 140 mmol/L (136-145)
[2023-11-21] MEDS: LISINOPRIL 10 MG TABLET PO SCH (10:46)
[2023-11-21] MEDS: amLODIPine BESYLATE 10 MG TABLET (FP) PO SCH (10:46)
[2023-11-21] MEDS: IBUPROFEN 400 MG TABLET (FP) PO PRN (10:49)
[2023-11-21 10:51] LABS: ANION GAP 10 mmol/L (4-13); BLOOD UREA NITROGEN 14.2 mg/dL (7-18); CALCIUM 9.4 mg/dL (8.5-10.1); CO2 29 mmol/L (21-32); GLUCOSE,RANDOM 164 mg/dL (74-106)
[2023-11-21 10:55] LABS: CREATININE 1.2 mg/dL (0.55-1.3); SGPT/ALT 40 U/L (13-61)
[2023-11-21 10:57] LABS: ALBUMIN 3.7 g/dl (3.4-5.0); BILIRUBIN,TOTAL 1.1 mg/dL (0.2-1); TOT PROT 6.8 g/dl (6.4-8.2)
[2023-11-21 10:58] LABS: ALK PHOS 92 U/L (45-117)
[2023-11-21 11:03] LABS: SGOT/AST 28 U/L (15-37)
[2023-11-21 11:38] LABS: SYPHILIS W/ RPR CONF NON-REACTIVE (NONREACTIVE)
[2023-11-21] MEDS: MAG HYDROX/AL HYDROX/SIMETH 30 ML UNIT-DOSE CUP PO PRN (11:57)
[2023-11-21] MEDS: MIRTAZAPINE 15 MG TABLET (FP) PO SCH (21:53)
[2023-11-21] MEDS ORDERED: MIRTAZAPINE 15 MG TABLET (FP) PO SCH ×2 (22:00)
[2023-11-22] MEDS: NICOTINE 21 MG/24 HOURS TOPICAL PATCH TD SCH (11:22)
[2023-11-22] MEDS: LIDOCAINE 4% PATCH TP SCH (11:22)
[2023-11-22] MEDS: METHOCARBAMOL 500 MG TABLET PO SCH (13:03)
[2023-11-22 13:54] LABS: PH,URINE >= 9.0 (5.0-8.0); URINE APPEARANCE CLEAR; URINE BILIRUBIN NEGATIVE (NEGATIVE); URINE COLOR YELLOW; URINE GLUCOSE (UA) NEGATIVE (NEGATIVE); URINE KETONE NEGATIVE (NEGATIVE); URINE LEUK ESTERASE NEGATIVE (NEGATIVE); URINE NITRITE NEGATIVE (NEGATIVE); URINE PROTEIN NEGATIVE (NEGATIVE); URINE UROBILINOGEN 0.2 mg/dL (0.2-1.0)
[2023-11-22] MEDS: IBUPROFEN 600 MG TABLET (FP) PO PRN (14:40)
[2023-11-22] MEDS: diazePAM 5 MG TABLET PO PRN (14:41)
[2023-11-22] MEDS: POLYETHYLENE GLYCOL (HEALTHYLAX) 3350 17 GM PACKET PO PRN (14:42)
[2023-11-22] MEDS: LIDOCAINE PATCH REMOVAL MC SCH (21:10)
[2023-11-22] MEDS: GABAPENTIN 300 MG CAPSULE PO SCH (21:10)
[2023-11-22] MEDS: MAGNESIUM HYDROX 2400MG/30ML ORAL SUSPENSION 30 ML CUP PO PRN (21:11)
[2023-11-23] MEDS: ALBUTEROL SO4 HFA INHALER IH PRN (06:28)
[2023-11-23] MEDS: SODIUM PHOSPHATE/NA BIPHOS 133 ML ENEMA RC ONE (09:46)
[2023-11-23 11:59] LABS: INR 1.07 (0.83-1.09); PROTHROMBIN TIME (PATIENT) 12.3 SEC (9.7-13.0)
[2023-11-23] MEDS: GABAPENTIN 300 MG CAPSULE PO SCH (21:21)
[2023-11-23] MEDS: NICOTINE POLACRILEX 4 MG GUM BUC PRN (21:46)
[2023-11-24] MEDS: BUDESONIDE/FORMETEROL FUMARATE 160/4.5 mcg INHALER IH SCH (14:11)
[2023-11-24] MEDS: ACETAMINOPHEN 325 MG TABLET (FP) PO PRN (16:30)
[2023-11-25] MEDS ORDERED: ALBUTEROL SO4 2.5/IPRATROPIUM 0.5 INH SOL 3 ML VIAL.NEB. NEB PRN (12:15)
[2023-11-25] MEDS: LACTULOSE 20 GM/30 ML UDC (FOR ORAL USE ONLY) PO SCH (13:09)
[2023-11-26] MEDS: CLINDAMYCIN PHOSPHATE 1% TOPICAL GEL 30 GM TUBE TP SCH (13:09)
[2023-11-27] MEDS: BISACODYL 5 MG TABLET.DR (FP) PO PRN (15:37)
[2023-11-28] MEDS ORDERED: methaDONE HCL 10 MG TABLET PO SCH (06:30)
[2023-11-29] MEDS: DICYCLOMINE HCL 10 MG CAPSULE PO PRN (17:31)
[2023-12-02 06:30] VITALS: BP 148/88; PULSE 87; RESP 16; TEMP 97.3
== END 2023-12-02 09:15 | disposition home or self-care (01) | DRG 772 ==
LOC: YASAS 15:59 → Y3E 16:01
PROVIDERS: ADMIT Allergy & Immunology; ATTEND Psychiatry & Neurology Pain Medicine
PROC: HZ42ZZZ Group Counseling for Substance Abuse Treatment, Cognitive-Behavioral (ICD-10-PCS; principal; 2023-11-20)
DX: F10.20 Alcohol dependence, uncomplicated (principal); F11.20 Opioid dependence, uncomplicated; F12.20 Cannabis dependence, uncomplicated; F17.210 Nicotine dependence, cigarettes, uncomplicated; F19.982 Other psychoactive substance use, unspecified with psychoactive substance-induced sleep disorder; F19.94 Other psychoactive substance use, unspecified with psychoactive substance-induced mood disorder; I10 Essential (primary) hypertension; J44.9 Chronic obstructive pulmonary disease, unspecified; M54.59 Other low back pain; G89.29 Other chronic pain; K59.00 Constipation, unspecified; D17.79 Benign lipomatous neoplasm of other sites; E72.20 Disorder of urea cycle metabolism, unspecified
CPT/HCPCS: 36415; 80053; 80307; 81003; 82140; 82652; 82962; 83735; 85027; 85610; 86780; 86803; 93005; 93010

== ENCOUNTER 2023-12-13 15:05 | Inpatient (IN) | payer OTHER ==
[2023-12-13 16:43] VITALS: BMI 27.8
[2023-12-13] MEDS ORDERED: guaiFENesin 600 MG TABLET.ER (FP) PO PRN (17:22)
[2023-12-13] MEDS ORDERED: BENZONATATE 200 MG CAPSULE PO PRN (17:22)
[2023-12-13] MEDS ORDERED: POLYETHYLENE GLYCOL (HEALTHYLAX) 3350 17 GM PACKET PO PRN (17:22)
[2023-12-13] MEDS ORDERED: NALOXONE (NARCAN) HCL 4 MG/0.1 ML SPRAY NS PRN (17:22)
[2023-12-13] MEDS ORDERED: DICYCLOMINE HCL 10 MG CAPSULE PO PRN (17:22)
[2023-12-13] MEDS ORDERED: NALOXONE HCL 0.4 MG/ML VIAL IM PRN (17:22)
[2023-12-13] MEDS ORDERED: BENZOCAINE/MENTHOL (CHLORASEPTIC ) LOZENGE MM PRN (17:22)
[2023-12-13] MEDS ORDERED: ONDANSETRON *ODT* 4 MG TABLET SL PRN (17:22)
[2023-12-13] MEDS ORDERED: IBUPROFEN 400 MG TABLET (FP) PO PRN (17:22)
[2023-12-13] MEDS ORDERED: BISMUTH SUBSALICYLATE 524 MG/30 ML PO PRN (17:22)
[2023-12-13] MEDS ORDERED: MAGNESIUM HYDROX 2400MG/30ML ORAL SUSPENSION 30 ML CUP PO PRN (17:22)
[2023-12-13] MEDS ORDERED: LOPERAMIDE HCL 2 MG CAPSULE PO PRN (17:22)
[2023-12-13] MEDS: diazePAM 5 MG TABLET PO PRN (19:28)
[2023-12-13] MEDS: IBUPROFEN 600 MG TABLET (FP) PO PRN (19:28)
[2023-12-13] MEDS: THIAMINE 100 MG TABLET PO SCH (22:07)
[2023-12-13] MEDS: MELATONIN 5 MG TABLETS PO SCH (22:07)
[2023-12-13] MEDS: diazePAM 5 MG TABLET PO SCH (22:08)
[2023-12-14] MEDS ORDERED: methaDONE HCL 10 MG TABLET PO SCH (08:15)
[2023-12-14] MEDS ORDERED: ALBUTEROL SO4 HFA INHALER IH PRN (09:35)
[2023-12-14] MEDS: PRENATAL VITAMINS W/ FOLIC ACID TABLET (FP) PO SCH (10:17)
[2023-12-14] MEDS: GABAPENTIN 300 MG CAPSULE PO SCH (10:21)
[2023-12-14] MEDS: amLODIPine BESYLATE 10 MG TABLET (FP) PO SCH (10:21)
[2023-12-14] MEDS: LISINOPRIL 10 MG TABLET PO SCH (10:21)
[2023-12-14 13:29] LABS: HEMATOCRIT 35.3 % (35.4-49); HEMOGLOBIN 11.4 GM/dL (11.7-16.9); MCH 28.5 pg (25.7-33.7); MCHC 32.3 g/dl (32.0-35.9); MEAN CELL VOLUME 88.2 fl (80-96); MEAN PLT VOLUME 8.7 fl (7.5-11.1); PLATELET COUNT 195 10^3/uL (134-434); RDW 14.7 % (11.9-15.9); WHITE BLOOD COUNT 7.1 K/mm3 (4.0-10.0)
[2023-12-14 13:44] LABS: CHLORIDE 105 mmol/L (98-107); SODIUM 139 mmol/L (136-145)
[2023-12-14 13:51] LABS: ALBUMIN 3.2 g/dl (3.4-5.0); ANION GAP 6 mmol/L (4-13); BLOOD UREA NITROGEN 20.7 mg/dL (7-18); CALCIUM 8.6 mg/dL (8.5-10.1); CO2 28 mmol/L (21-32)
[2023-12-14 13:54] LABS: ALK PHOS 81 U/L (45-117); BILIRUBIN,TOTAL 0.5 mg/dL (0.2-1); CREATININE 0.8 mg/dL (0.55-1.3); SGOT/AST 23 U/L (15-37); SGPT/ALT 28 U/L (13-61); TOT PROT 5.8 g/dl (6.4-8.2)
[2023-12-14 13:55] LABS: GLUCOSE,RANDOM 119 mg/dL (74-106)
[2023-12-14] MEDS: NICOTINE 21 MG/24 HOURS TOPICAL PATCH TD SCH (15:17)
[2023-12-14] MEDS: METHOCARBAMOL 500 MG TABLET PO PRN (17:13)
[2023-12-14] MEDS: cloNIDine HCL 0.1 MG TABLET PO PRN (17:13)
[2023-12-14] MEDS: MIRTAZAPINE 15 MG TABLET (FP) PO SCH (22:12)
[2023-12-15] MEDS: diazePAM 5 MG TABLET PO SCH (05:42)
[2023-12-15] MEDS: LIDOCAINE 4% PATCH TP SCH (11:45)
[2023-12-15] MEDS ORDERED: GABAPENTIN 300 MG CAPSULE PO SCH (14:00)
[2023-12-15] MEDS: GABAPENTIN 400 MG CAPSULE PO SCH (14:14)
[2023-12-15] MEDS: MIRTAZAPINE 15 MG TABLET (FP) PO SCH (22:10)
[2023-12-15] MEDS: LIDOCAINE PATCH REMOVAL MC SCH (22:54)
[2023-12-16] MEDS: diazePAM 5 MG TABLET PO SCH (05:47)
[2023-12-16] MEDS: hydrOXYzine PAMOATE 25 MG CAPSULE (FP) PO PRN (10:42)
[2023-12-16] MEDS: MAG HYDROX/AL HYDROX/SIMETH 30 ML UNIT-DOSE CUP PO PRN (16:35)
[2023-12-17] MEDS: diazePAM 5 MG TABLET PO ONE (05:39)
[2023-12-17] MEDS: ACETAMINOPHEN 325 MG TABLET (FP) PO PRN (13:04)
[2023-12-17] MEDS: NICOTINE POLACRILEX 2 MG GUM BUC PRN (22:08)
[2023-12-18 12:56] VITALS: BP 147/83; PULSE 80; RESP 17; TEMP 97.5
== END 2023-12-18 13:25 | disposition other institution (70) | DRG 773 ==
LOC: YASAS 15:05 → Y3N 17:25
PROVIDERS: ADMIT Allergy & Immunology; ATTEND Surgery
PROC: HZ2ZZZZ Detoxification Services for Substance Abuse Treatment (ICD-10-PCS; principal; 2023-12-13)
DX: F10.230 Alcohol dependence with withdrawal, uncomplicated (principal); F11.20 Opioid dependence, uncomplicated; F12.10 Cannabis abuse, uncomplicated; F17.210 Nicotine dependence, cigarettes, uncomplicated; F41.9 Anxiety disorder, unspecified; F43.10 Post-traumatic stress disorder, unspecified; I10 Essential (primary) hypertension; J45.909 Unspecified asthma, uncomplicated; M54.50 Low back pain, unspecified; G89.29 Other chronic pain; Z86.69 Personal history of other diseases of the nervous system and sense organs; Z59.01 Sheltered homelessness
CPT/HCPCS: 36415; 73560-TC-RT-FY; 80053; 80305; 80307; 85027; 86780; 93005; 93010

== ENCOUNTER 2023-12-18 13:46 | Inpatient (IN) | payer OTHER ==
[2023-12-18] MEDS ORDERED: BENZOCAINE/MENTHOL (CHLORASEPTIC ) LOZENGE MM PRN (14:36)
[2023-12-18] MEDS ORDERED: BENZONATATE 200 MG CAPSULE PO PRN (14:36)
[2023-12-18] MEDS ORDERED: NALOXONE (NARCAN) HCL 4 MG/0.1 ML SPRAY NS PRN (14:36)
[2023-12-18] MEDS ORDERED: LOPERAMIDE HCL 2 MG CAPSULE PO PRN (14:36)
[2023-12-18] MEDS ORDERED: NALOXONE HCL 0.4 MG/ML VIAL IM PRN (14:36)
[2023-12-18] MEDS ORDERED: guaiFENesin 600 MG TABLET.ER (FP) PO PRN (14:36)
[2023-12-18] MEDS ORDERED: POLYETHYLENE GLYCOL (HEALTHYLAX) 3350 17 GM PACKET PO PRN (14:36)
[2023-12-18] MEDS ORDERED: MAGNESIUM HYDROX 2400MG/30ML ORAL SUSPENSION 30 ML CUP PO PRN (14:36)
[2023-12-18] MEDS: hydrOXYzine PAMOATE 25 MG CAPSULE (FP) PO PRN (18:14)
[2023-12-18] MEDS: METHOCARBAMOL 500 MG TABLET PO SCH ×2 (20:21→21:30)
[2023-12-18] MEDS: MIRTAZAPINE 15 MG TABLET (FP) PO SCH (21:27)
[2023-12-18] MEDS: GABAPENTIN 400 MG CAPSULE PO SCH (21:27)
[2023-12-18] MEDS: MELATONIN 5 MG TABLETS PO SCH (21:27)
[2023-12-18] MEDS: THIAMINE 100 MG TABLET PO SCH (21:27)
[2023-12-19] MEDS ORDERED: methaDONE HCL 10 MG TABLET PO SCH (06:00)
[2023-12-19] MEDS: IBUPROFEN 600 MG TABLET (FP) PO PRN (06:21)
[2023-12-19] MEDS ORDERED: PATIENT'S OWN MEDICATION (NON-FORMULARY) (Lisinopril [Lisinopril] 30 MG Tablet) PO SCH (10:00)
[2023-12-19 10:09] LABS: HEMATOCRIT 36.4 % (35.4-49); MCH 28.8 pg (25.7-33.7); MEAN CELL VOLUME 87.2 fl (80-96); MEAN PLT VOLUME 8.6 fl (7.5-11.1); PLATELET COUNT 182 10^3/uL (134-434); RBC 4.18 M/mm3 (4.00-5.60); WHITE BLOOD COUNT 6.7 K/mm3 (4.0-10.0)
[2023-12-19] MEDS: PRENATAL VITAMINS W/ FOLIC ACID TABLET (FP) PO SCH (10:17)
[2023-12-19] MEDS: LISINOPRIL 10 MG TABLET PO SCH (10:17)
[2023-12-19] MEDS: amLODIPine BESYLATE 10 MG TABLET (FP) PO SCH (10:18)
[2023-12-19] MEDS: MAG HYDROX/AL HYDROX/SIMETH 30 ML UNIT-DOSE CUP PO PRN (10:20)
[2023-12-19 11:45] LABS: SYPHILIS W/ RPR CONF NON-REACTIVE (NONREACTIVE)
[2023-12-19 12:06] LABS: CHLORIDE 102 mmol/L (98-107); POTASSIUM 4.4 mmol/L (3.5-5.1); SODIUM 137 mmol/L (136-145)
[2023-12-19 12:08] LABS: CALCIUM 9.1 mg/dL (8.5-10.1)
[2023-12-19 12:09] LABS: ALBUMIN 3.5 g/dl (3.4-5.0); ANION GAP 10 mmol/L (4-13); BLOOD UREA NITROGEN 16.7 mg/dL (7-18); CO2 26 mmol/L (21-32); GLUCOSE,RANDOM 157 mg/dL (74-106)
[2023-12-19] MEDS: NICOTINE 14 MG/24 HOURS TOPICAL PATCH TD SCH (12:10)
[2023-12-19 12:12] LABS: SGOT/AST 24 U/L (15-37); SGPT/ALT 29 U/L (13-61)
[2023-12-19 12:13] LABS: BILIRUBIN,TOTAL 0.7 mg/dL (0.2-1); TOT PROT 6.4 g/dl (6.4-8.2)
[2023-12-19 12:15] LABS: ALK PHOS 77 U/L (45-117)
[2023-12-19] MEDS: ALBUTEROL SO4 HFA INHALER IH PRN (17:15)
[2023-12-19] MEDS: ALBUTEROL SO4 2.5/IPRATROPIUM 0.5 INH SOL 3 ML VIAL.NEB. NEB ONE ×2 (17:55→18:53)
[2023-12-19] MEDS: predniSONE 20 MG TABLET (UD) PO SCH (17:57)
[2023-12-19] MEDS: ACETAMINOPHEN 325 MG TABLET (FP) PO PRN (18:54)
[2023-12-19] MEDS ORDERED: ALBUTEROL SO4 2.5/IPRATROPIUM 0.5 INH SOL 3 ML VIAL.NEB. NEB PRN (19:00)
[2023-12-19] MEDS: NICOTINE POLACRILEX 2 MG GUM BUC PRN (20:19)
[2023-12-19] MEDS: MIRTAZAPINE 15 MG TABLET (FP) PO SCH (21:14)
[2023-12-20] MEDS: GABAPENTIN 300 MG CAPSULE PO SCH (13:43)
[2023-12-20 16:51] LABS: PH,URINE 6.5 (5.0-8.0); URINE APPEARANCE CLEAR; URINE BILIRUBIN NEGATIVE (NEGATIVE); URINE COLOR YELLOW; URINE GLUCOSE (UA) NEGATIVE (NEGATIVE); URINE KETONE NEGATIVE (NEGATIVE); URINE LEUK ESTERASE NEGATIVE (NEGATIVE); URINE NITRITE NEGATIVE (NEGATIVE); URINE PROTEIN NEGATIVE (NEGATIVE)
[2023-12-21] MEDS: NICOTINE POLACRILEX 4 MG GUM BUC PRN (10:08)
[2023-12-21] MEDS: PANTOPRAZOLE 20 MG TABLET PO SCH (11:37)
[2023-12-21] MEDS: LIDOCAINE 4% PATCH TP SCH (11:39)
[2023-12-21 12:19] LABS: INR 0.96 (0.83-1.09); PROTHROMBIN TIME (PATIENT) 11.1 SEC (9.7-13.0)
[2023-12-21] MEDS: LIDOCAINE PATCH REMOVAL MC SCH (21:07)
[2023-12-22] MEDS: NICOTINE 21 MG/24 HOURS TOPICAL PATCH TD SCH (10:00)
[2023-12-22] MEDS: ARIPiprazole 2 MG TABLET PO SCH (13:32)
[2023-12-22] MEDS: FUROSEMIDE 20 MG TABLET (FP) PO SCH (15:54)
[2023-12-22] MEDS: SODIUM PHOSPHATE/NA BIPHOS 133 ML ENEMA RC ONE (16:00)
[2023-12-23] MEDS: ARIPiprazole 2 MG TABLET PO SCH (21:56)
[2023-12-24] MEDS: SUVOREXANT 10 MG TABLET PO PRN (21:55)
[2023-12-26] MEDS: METHOCARBAMOL 500 MG TABLET PO PRN (06:11)
[2023-12-26] MEDS: HYDROCHLOROTHIAZIDE 12.5 MG CAPSULE (FP) PO SCH (09:03)
[2023-12-26] MEDS: SUVOREXANT 10 MG TABLET PO PRN (21:13)
[2023-12-27] MEDS: IBUPROFEN 400 MG TABLET (FP) PO PRN (10:21)
[2023-12-28] MEDS: ARIPiprazole 5 MG TABLET PO SCH (21:37)
[2023-12-29] MEDS: ACAMPROSATE CALCIUM 333 MG TABLET.DR PO SCH (10:20)
[2023-12-30 06:27] VITALS: TEMP 97.9
[2023-12-30 09:12] VITALS: BP 150/75; PULSE 80; RESP 18
== END 2023-12-30 09:20 | disposition home or self-care (01) | DRG 772 ==
LOC: YASAS 13:46 → Y3NR 13:48 → Y3E 12-20 11:35
PROVIDERS: ADMIT Surgery; ATTEND Psychiatry & Neurology Pain Medicine
PROC: HZ42ZZZ Group Counseling for Substance Abuse Treatment, Cognitive-Behavioral (ICD-10-PCS; principal; 2023-12-18)
DX: F10.20 Alcohol dependence, uncomplicated (principal); F11.20 Opioid dependence, uncomplicated; F12.20 Cannabis dependence, uncomplicated; F17.210 Nicotine dependence, cigarettes, uncomplicated; F19.282 Other psychoactive substance dependence with psychoactive substance-induced sleep disorder; F41.9 Anxiety disorder, unspecified; F43.10 Post-traumatic stress disorder, unspecified; I10 Essential (primary) hypertension; J45.901 Unspecified asthma with (acute) exacerbation; K59.00 Constipation, unspecified; K21.9 Gastro-esophageal reflux disease without esophagitis; M54.50 Low back pain, unspecified; G89.29 Other chronic pain; K29.20 Alcoholic gastritis without bleeding; R60.0 Localized edema
CPT/HCPCS: 36415; 80053; 80307; 81003; 82140; 82652; 83735; 85027; 85610; 86780; 86803; 87811; 94640

== ENCOUNTER 2024-02-06 18:43 | Inpatient (IN) | payer OTHER ==
[2024-02-06 18:45] VITALS: BMI 33.5
[2024-02-07] MEDS ORDERED: BENZOCAINE/MENTHOL (CHLORASEPTIC ) LOZENGE MM PRN (00:36)
[2024-02-07] MEDS ORDERED: BISMUTH SUBSALICYLATE 524 MG/30 ML PO PRN (00:36)
[2024-02-07] MEDS ORDERED: guaiFENesin 600 MG TABLET.ER (FP) PO PRN (00:36)
[2024-02-07] MEDS ORDERED: MAGNESIUM HYDROX 2400MG/30ML ORAL SUSPENSION 30 ML CUP PO PRN (00:36)
[2024-02-07] MEDS ORDERED: NICOTINE POLACRILEX 2 MG GUM BUC PRN (00:36)
[2024-02-07] MEDS ORDERED: NALOXONE (NYS OPIOID OVERDOSE PROGRAM) 4 MG/0.1 ML SPRAY NS PRN (00:36)
[2024-02-07] MEDS ORDERED: IBUPROFEN 400 MG TABLET (FP) PO PRN (00:36)
[2024-02-07] MEDS ORDERED: NALOXONE (NARCAN) HCL 4 MG/0.1 ML SPRAY NS PRN (00:36)
[2024-02-07] MEDS ORDERED: DICYCLOMINE HCL 10 MG CAPSULE PO PRN (00:36)
[2024-02-07] MEDS ORDERED: BENZONATATE 200 MG CAPSULE PO PRN (00:36)
[2024-02-07] MEDS ORDERED: LOPERAMIDE HCL 2 MG CAPSULE PO PRN (00:36)
[2024-02-07] MEDS ORDERED: ONDANSETRON *ODT* 4 MG TABLET SL PRN (00:36)
[2024-02-07] MEDS ORDERED: POLYETHYLENE GLYCOL (HEALTHYLAX) 3350 17 GM PACKET PO PRN (00:36)
[2024-02-07] MEDS ORDERED: MAG HYDROX/AL HYDROX/SIMETH 30 ML UNIT-DOSE CUP PO PRN (00:36)
[2024-02-07] MEDS ORDERED: chlordiazePOXIDE HCL 25 MG CAPSULE ONE (01:50)
[2024-02-07] MEDS: chlordiazePOXIDE HCL 25 MG CAPSULE PO PRN (01:52)
[2024-02-07] MEDS: hydrOXYzine PAMOATE 25 MG CAPSULE (FP) PO PRN (02:35)
[2024-02-07] MEDS: chlordiazePOXIDE HCL 25 MG CAPSULE PO SCH (05:28)
[2024-02-07] MEDS ORDERED: methaDONE HCL 10 MG TABLET PO SCH (09:00)
[2024-02-07] MEDS ORDERED: ALBUTEROL SO4 HFA INHALER IH PRN (09:23)
[2024-02-07] MEDS: LISINOPRIL 10 MG TABLET PO SCH (10:04)
[2024-02-07] MEDS: NICOTINE 21 MG/24 HOURS TOPICAL PATCH TD SCH (10:04)
[2024-02-07] MEDS: HYDROCHLOROTHIAZIDE 12.5 MG CAPSULE (FP) PO SCH (10:04)
[2024-02-07] MEDS: PRENATAL VITAMINS W/ FOLIC ACID TABLET (FP) PO SCH (10:04)
[2024-02-07] MEDS: ACAMPROSATE CALCIUM 333 MG TABLET.DR PO SCH (14:16)
[2024-02-07] MEDS: cloNIDine HCL 0.1 MG TABLET PO PRN (14:16)
[2024-02-07] MEDS: GABAPENTIN 300 MG CAPSULE PO SCH (14:16)
[2024-02-07] MEDS: IBUPROFEN 600 MG TABLET (FP) PO PRN (15:10)
[2024-02-07] MEDS: ACETAMINOPHEN 325 MG TABLET (FP) PO PRN (17:27)
[2024-02-07] MEDS: METHOCARBAMOL 500 MG TABLET PO PRN (17:27)
[2024-02-07] MEDS: ARIPiprazole 5 MG TABLET PO SCH (22:09)
[2024-02-07] MEDS: MELATONIN 5 MG TABLETS PO SCH (22:10)
[2024-02-07] MEDS: MIRTAZAPINE 15 MG TABLET (FP) PO SCH (22:10)
[2024-02-07] MEDS: THIAMINE 100 MG TABLET PO SCH (22:10)
[2024-02-08] MEDS: chlordiazePOXIDE HCL 25 MG CAPSULE PO SCH (05:20)
[2024-02-08] MEDS: PANTOPRAZOLE 20 MG TABLET PO SCH (07:29)
[2024-02-08 12:41] LABS: HEMATOCRIT 39.7 % (35.4-49); HEMOGLOBIN 12.7 GM/dL (11.7-16.9); MCH 27.9 pg (25.7-33.7); MCHC 31.9 g/dl (32.0-35.9); MEAN CELL VOLUME 87.5 fl (80-96); PLATELET COUNT 194 10^3/uL (134-434); RBC 4.54 M/mm3 (4.00-5.60); WHITE BLOOD COUNT 10.4 K/mm3 (4.0-10.0)
[2024-02-08 14:05] LABS: POTASSIUM 4.2 mmol/L (3.5-5.1)
[2024-02-08 14:10] LABS: ALBUMIN 3.5 g/dl (3.4-5.0); CALCIUM 9.4 mg/dL (8.5-10.1)
[2024-02-08 14:15] LABS: CREATININE 0.9 mg/dL (0.55-1.3)
[2024-02-08 14:16] LABS: BILIRUBIN,TOTAL 0.4 mg/dL (0.2-1); TOT PROT 6.1 g/dl (6.4-8.2)
[2024-02-08 16:48] VITALS: BP 126/79; PULSE 70; RESP 20; TEMP 97.7
[2024-02-09] MEDS ORDERED: chlordiazePOXIDE HCL 10 MG CAPSULE PO PRN
[2024-02-09] MEDS ORDERED: chlordiazePOXIDE HCL 10 MG CAPSULE PO SCH (05:00)
[2024-02-10] MEDS ORDERED: chlordiazePOXIDE HCL 10 MG CAPSULE PO SCH (05:00)
[2024-02-11] MEDS ORDERED: chlordiazePOXIDE HCL 10 MG CAPSULE PO ONE (05:00)
== END 2024-02-08 20:14 | disposition left against medical advice (07) | DRG 773 ==
LOC: YASAS 18:43 → Y3N 02-07 01:59
PROVIDERS: ADMIT Allergy & Immunology; ATTEND Surgery
PROC: HZ2ZZZZ Detoxification Services for Substance Abuse Treatment (ICD-10-PCS; principal; 2024-02-07)
DX: F10.230 Alcohol dependence with withdrawal, uncomplicated (principal); F11.20 Opioid dependence, uncomplicated; F19.20 Other psychoactive substance dependence, uncomplicated; F19.282 Other psychoactive substance dependence with psychoactive substance-induced sleep disorder; F41.9 Anxiety disorder, unspecified; F43.10 Post-traumatic stress disorder, unspecified; I10 Essential (primary) hypertension; J45.20 Mild intermittent asthma, uncomplicated; K59.00 Constipation, unspecified; K29.20 Alcoholic gastritis without bleeding; M54.50 Low back pain, unspecified; G89.29 Other chronic pain; Z59.00 Homelessness unspecified; Z56.0 Unemployment, unspecified; F91.8 Other conduct disorders; Z91.199 Patient's noncompliance with other medical treatment and regimen due to unspecified reason
CPT/HCPCS: 36415; 80053; 80305; 80307; 85027; 86780; 93005; 93010